=== PATIENT | female | born 1940 | race Caucasian/White ===

== ENCOUNTER 2016-05-20 14:11 | Observation (INO) | payer BC, MEDICARE ==
[2016-05-20] VITALS (7 sets, daily range): BP systolic 127–159; BP diastolic 60–75; PULSE 96–110; RESP 16–20; TEMP 98.2–98.5; O2SAT 95–96
[~2016-05-20] VITALS: Ht 160 cm; Wt 79.2 kg
[~2016-05-20 14:11] MED LIST: ALLO300 PO; ASPI81 PO; GEMF600 PO; LEVA750T9 PO; MAXZ PO; NIAC100T3 PO; PRAV40TA PO; PRIL10CA PO; TAB-TAB PO; TESS200C PO
[2016-05-20] MEDS ORDERED: PRAV40TA2 PO (14:26)
[2016-05-20] MEDS ORDERED: BENZ100 PO (14:26)
[2016-05-20] MEDS ORDERED: ASPI81CH CHEW (14:26)
[2016-05-20] MEDS ORDERED: ZITH250T PO (14:26)
[2016-05-20] MEDS ORDERED: GEMF600T PO (14:26)
[2016-05-20] MEDS ORDERED: METF500T PO (14:26)
[2016-05-20] MEDS ORDERED: LOSA100T2 PO (14:26)
[2016-05-20] MEDS ORDERED: NIAC100T2 PO (14:26)
[2016-05-20] MEDS ORDERED: PRIL20CA9 PO (14:26)
[2016-05-20] MEDS ORDERED: ALLO300T2 PO (14:26)
[2016-05-20] MEDS ORDERED: MULT-135 PO (14:26)
--- NOTE | 2016-05-20 14:50 | PD ---
HPI Chief Complaint: Cold / Flu Symptoms Time Seen by Provider: 14:40 Travel History International Travel<30 days: No Contact w/Intl Traveler<30days: No Traveled to known affect area: No History of Present Illness HPI 76 year-old female presents to the emergency room for evaluation of nonproductive cough, congestion, sore throat, and occasional headache for the past 3 days. She was recently on a cruise ship and reports symptoms started shortly after getting back. She states he granddaughter was on the ship too and has similar symptoms. Cough is severe and causes shortness of breathing during coughing spells. Denies any chronic lung, heart, or kidney problems or history of smoking. Denies any objective fever. Her felt her head 2 days ago and states she felt hot but otherwise she has no chills or sweats. She took Robitussin and Claritin without any improvement in symptoms. She went to an urgent care center yesterday and was diagnosed with upper respiratory infection and discharged with prescriptions for Tessalon Perles and azithromycin. Tessalon Perles are not helping. Patient was instructed not to start the azithromycin for a few days. States she started Z-Kale this morning because her cough was so severe. Only reports history of high cholesterol, diabetes, hypertension. PFSH Past Medical History Cardiovascular Problems: Yes (HTN) High Cholesterol: Yes Diabetes: Yes (TYPE 2) Patient Takes Glucophage: Yes Diminished Hearing: No Hypertension: Yes Tetanus Vaccination: < 5 Years Influenza Vaccination: Yes ?: Not Past Surgical History Cholecystectomy: Yes Hysterectomy: Yes Social History Alcohol Use: No Tobacco Use: No Substance Use: No Allergies-Medications (Allergen,Severity, Reaction): Coded Allergies: Sulfa (Verified Allergy, Intermediate, 05/20/16) Reported Meds & Prescriptions Reported Meds & Active Scripts Active Reported Zithromax (Azithromycin) 250 Mg Tab 250 Mg PO DIRECTED Take 2 tabs (500 mg) on day 1 then 1 tab daily x 4 days. Tessalon Perles (Benzonatate) 100 Mg Cap 100 Mg PO TID PRN Prilosec (Omeprazole) 20 Mg Cap 20 Mg PO DAILY Pravastatin 40 Mg Tab 40 Mg PO DAILY Allopurinol 300 Mg Tab 300 Mg PO DAILY Losartan-Hydrochlorothiazide 100-25 Mg Tab 1 Tab PO DAILY Metformin (Metformin HCl) 500 Mg Tab 250 Mg PO BIDPC With meals Gemfibrozil 600 Mg Tab 600 Mg PO BIDAC Take 30 minutes prior to breakfast and dinner. Aspirin 81 Mg Chew 81 Mg CHEW DAILY Niacin 100 Mg Tab 100 Mg PO DAILY Multi Vitamin (Multiple Vitamin) 1 Tab Tab 1 Tab PO DAILY Review of Systems Except as stated in HPI: all other systems reviewed are Neg Physical Exam Narrative GENERAL: Well-nourished, well-developed female in no acute distress. Afebrile. Ambulatory. SKIN: Warm and dry. HEAD: Normocephalic. EYES: No scleral icterus. No injection or drainage. ENT: Mucosa pink and moist. Mild to moderate erythema without exudates. No uvular edema. No uvular, palatal, or tonsillar deviation. Airway patent. EARS: Bilateral pinnae and external canals appear within normal limits. Bilateral tympanic membranes without erythema, dullness or perforation. NECK: Supple, trachea midline. No JVD or lymphadenopathy. CARDIOVASCULAR: Regular rate and rhythm without murmurs, gallops, or rubs. RESPIRATORY: Breath sounds equal bilaterally. No accessory muscle use. Bilateral expiratory Rales. Data Data Last Documented VS Vital Signs Date Time Temp Pulse Resp B/P Pulse Ox O2 Delivery O2 Flow Rate FiO2 05/20/16 15:30 96 20 127/63 95 Room Air 05/20/16 14:13 98.3 Orders Chest, Pa & Lat (05/20/16 ) Influenzae A/B Antigen (05/20/16 14:32) Complete Blood Count With Diff (05/20/16 14:36) Basic Metabolic Panel (Bmp) (05/20/16 14:36) Prothrombin Time / Inr (Pt) (05/20/16 14:36) Act Partial Throm Time (Ptt) (05/20/16 14:36) Albuterol-Ipratropium Neb (Duoneb Neb) (05/20/16 15:30) Sodium Chlor 0.9% 1000 Ml Inj (Ns 1000 M (05/20/16 16:00) Admit Order (Ed Use Only) (05/20/16 17:12) Labs Laboratory Tests Test 05/20/16 15:10 White Blood Count 14.5 TH/MM3 Red Blood Count 4.13 MIL/MM3 Hemoglobin 12.6 GM/DL Hematocrit 38.3 % Mean Corpuscular Volume 92.8 FL Mean Corpuscular Hemoglobin 30.6 PG Mean Corpuscular Hemoglobin 33.0 % Concent Red Cell Distribution Width 13.0 % Platelet Count 273 TH/MM3 Mean Platelet Volume 8.1 FL Neutrophils (%) (Auto) 71.4 % Lymphocytes (%) (Auto) 13.7 % Monocytes (%) (Auto) 11.3 % Eosinophils (%) (Auto) 2.8 % Basophils (%) (Auto) 0.8 % Neutrophils # (Auto) 10.4 TH/MM3 Lymphocytes # (Auto) 2.0 TH/MM3 Monocytes # (Auto) 1.6 TH/MM3 Eosinophils # (Auto) 0.4 TH/MM3 Basophils # (Auto) 0.1 TH/MM3 CBC Comment DIFF FINAL Differential Comment Prothrombin Time 11.5 SEC Prothromb Time International 1.0 RATIO Ratio Activated Partial 30.6 SEC Thromboplast Time Sodium Level 136 MEQ/L Potassium Level 4.1 MEQ/L Chloride Level 98 MEQ/L Carbon Dioxide Level 25.8 MEQ/L Anion Gap 12 MEQ/L Blood Urea Nitrogen 36 MG/DL Creatinine 1.80 MG/DL Estimat Glomerular Filtration 27 ML/MIN Rate Random Glucose 109 MG/DL Calcium Level 9.8 MG/DL [facility] Medical Decision Making Medical Screen Exam Complete: Yes Emergency Medical Condition: Yes Medical Record Reviewed: Yes Differential Diagnosis Bronchitis versus URI versus pneumonia Narrative Course 76-year-old female presents to the emergency room for evaluation of nonproductive cough and cold symptoms for the past 3 days. Patient started Z- Kale from an urgent care center this morning. She is afebrile and well- appearing in the emergency room. She is slightly tachycardic with heart rate in the low 100s; upon recheck it is 96. Vital signs otherwise stable. Pulse ox 95% on room air. Coughing occasionally. Cough is nonproductive. Lung sounds reveal expiratory rales. Chest x-ray is negative. Rapid flu is negative. CBC shows very mild leukocytosis of 14.5. BMP shows evidence of dehydration with an elevated BUN of 36 and creatinine 1.8. Patient given 1 L of fluids. She is visiting from out of town and will not return home until June 02. Patient will be admitted for dehydration/acute kidney injury. Patient understands and agrees to plan. Physician Communication Physician Communication I spoke to Dr. Joseph who agrees to admit this patient to her service. Diagnosis Primary Impression: Acute kidney injury Additional Impressions: Dehydration Upper respiratory infection Qualified Code: J00 - Acute nasopharyngitis Admitting Information Admitting Physician Requests: Observation Condition: Stable Shoshana Galloway May 20, 2016 14:50 Shoshana Galloway May 20, 2016 14:50 PRN (COUGH) #100 ML Ref 0 Do not exceed 6 doses/24 hrs. Prov:Aaron Gonzalez MD 05/20/16 Disposition: 01 DISCHARGE HOME Condition: Stable Shoshana Galloway May 20, 2016 14:50 Shoshana Galloway May 20, 2016 14:50
--- NOTE | 2016-05-20 15:00 | RADHPO ---
EXAM DATE/TIME: 05/20/2016 14:37 [place] COMPARISON: No previous studies available for comparison. INDICATIONS : Shortness of breath, fever, and cough for three days. MEDICAL HISTORY : Diabetes mellitus type II. SURGICAL HISTORY : None. ENCOUNTER: Initial ACUITY: 3 days PAIN SCORE: 0/10 LOCATION: Bilateral chest FINDINGS: PA and lateral views of the chest demonstrate the lungs to be symmetrically aerated without evidence of mass, infiltrate or effusion. The cardiomediastinal contours are unremarkable. Osseous structure s are intact. CONCLUSION: No acute disease. Isaias Del Valle MD FACR on May 20, 2016 at 14:58 Board Certified Radiologist. This report was verified electronically.
[2016-05-20 15:20] LABS: AUTOMATED NEUTROPHIL # 10.4 TH/MM3 (1.8-7.7); BASOPHIL # 0.1 TH/MM3 (0-0.2); BASOPHIL % 0.8 % (0.0-2.0); EOSINOPHIL # 0.4 TH/MM3 (0-0.4); EOSINOPHIL % 2.8 % (0.0-4.0); HEMATOCRIT 38.3 % (35.0-46.0); HEMO FLAGS DIFF FINAL; LYMPH % 13.7 % (9.0-44.0); MEAN CELL VOLUME 92.8 FL (80.0-100.0); MEAN CORPUSCULAR HEMOGLOBIN 30.6 PG (27.0-34.0); MONO % 11.3 % (0.0-8.0); NEUT % 71.4 % (16.0-70.0); PLATELET COUNT 273 TH/MM3 (150-450); RED BLOOD COUNT 4.13 MIL/MM3 (4.00-5.30); WHITE BLOOD COUNT 14.5 TH/MM3 (4.0-11.0)
[2016-05-20 15:29] LABS: POTASSIUM 4.1 MEQ/L (3.5-5.1)
[2016-05-20] MEDS ORDERED: RESP: ALBUTEROL 2.5 MG/IPRATROPIUM 0.5 MG NEB (SCH) NEB ONE (15:30)
[2016-05-20 15:32] LABS: BICARBONATE 25.8 MEQ/L (21.0-32.0)
[2016-05-20] MEDS ORDERED: CHERSYP2 PO (15:33)
[2016-05-20 15:34] LABS: APTT (PATIENT) 30.6 SEC (24.3-30.1); PROTHROMBIN TIME - PATIENT 11.5 SEC (9.8-11.6)
[2016-05-20] MEDS ORDERED: SODIUM CHLOR 0.9% 1000 ML INJ 1,000 ML IV ONE (16:00)
[2016-05-20] MEDS ORDERED: GLUCAGON 1 MG/ML VIAL OTHER PRN (17:45)
[2016-05-20] MEDS ORDERED: DEXTROSE 50% IN WATER 50 ML VIAL(D50) IV PUSH PRN (17:45)
[2016-05-20] MEDS: SODIUM CHLOR 0.9% 1000 ML INJ 1,000 ML IV SCH (18:38)
--- NOTE | 2016-05-20 18:50 | HHI.HP ---
[facility] Service [facility] Primary Care Physician Non-Staff Admission Diagnosis dehydration Diagnoses: (1) Sepsis Diagnosis: Principal (2) Leukocytosis Diagnosis: Principal (3) Acute kidney injury Diagnosis: Principal (4) Upper respiratory infection Diagnosis: Principal (5) possible bronchitis Diagnosis: Principal Chief Complaint: cough Travel History International Travel<30 Days: Yes Contact w/Intl Traveler <30 Da: Yes Name of Country Traveled to: [facility] Traveled to Known Affected Are: No Sepsis Criteria SIRS Criteria (2 or more): Heart rate over 90, WBC > 92205, < 4000 or > 10% bands Sepsis Criteria (SIRS+source): Infect source susp/known Criteria Outcome: Meets sepsis criteria History of Present Illness 76-year-old female with history of diabetes, hypertension, hyperlipidemia, GERD, gout presents with complaint of cold and cough symptoms, admitted for BIMAL. Patient states symptoms started on Sunday. She states she has had a cough which occurs day and night. She states her coughing fit today lasted 5 minutes, and she will gag and become short of breath due to coughing. States the cough is dry but admits to yellow mucus from the nose. She additionally has had headaches and sore throat as well as subjective fevers. She denies any earache or chills. She states she went to an urgent care and was prescribed a Z-Kale. She states she started it today, taking 500 mg. She took Robitussin without relief. Patient states she has not been eating or drinking much recently because she has been feeling ill. She denies any chest pain aside from soreness from coughing, abdominal pain, nausea, vomiting, diarrhea, constipation. Denies any dysuria. Denies any neck, back pain, or rashes. Denies any leg swelling. Currently staying in a motel as she is from [place]. Review of Systems Constitutional: COMPLAINS OF: Fever, DENIES: Chills Eyes: DENIES: Blurred vision Ears, nose, mouth, throat: COMPLAINS OF: Throat pain, Running Nose Respiratory: COMPLAINS OF: Cough, Shortness of breath, DENIES: Wheezing, Sputum production Cardiovascular: DENIES: Chest pain Gastrointestinal: DENIES: Abdominal pain, Constipation, Diarrhea, Nausea, Vomiting Genitourinary: DENIES: Dysuria Musculoskeletal: DENIES: Back pain, Neck pain Integumentary: DENIES: Rash Neurologic: COMPLAINS OF: Headache, DENIES: Paresthesias Past Family Social History Past Medical History Hypertension Hyperlipidemia Type 2 diabetes GERD Gout Past Surgical History Cholecystectomy Hysterectomy Bilateral total hip arthroplasties, 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 Reported Medications Zithromax (Azithromycin) 250 Mg Tab 250 Mg PO DIRECTED Take 2 tabs (500 mg) on day 1 then 1 tab daily x 4 days. Tessalon Perles (Benzonatate) 100 Mg Cap 100 Mg PO TID PRN Prilosec (Omeprazole) 20 Mg Cap 20 Mg PO DAILY Pravastatin 40 Mg Tab 40 Mg PO DAILY Allopurinol 300 Mg Tab 300 Mg PO DAILY Losartan-Hydrochlorothiazide 100-25 Mg Tab 1 Tab PO DAILY Metformin (Metformin HCl) 500 Mg Tab 250 Mg PO BIDPC With meals Gemfibrozil 600 Mg Tab 600 Mg PO BIDAC Take 30 minutes prior to breakfast and dinner. Aspirin 81 Mg Chew 81 Mg CHEW DAILY Niacin 100 Mg Tab 100 Mg PO DAILY Multi Vitamin (Multiple Vitamin) 1 Tab Tab 1 Tab PO DAILY Allergies: Coded Allergies: Sulfa (Verified Allergy, Intermediate, 05/20/16) Family History Mother: Type 2 diabetic. Father: [place] in his 80s. Social History Denies alcohol use. Denies any history of cigarette smoking. Denies illicit drug use. Physical Exam Vital Signs Vital Signs Date Time Temp Pulse Resp B/P Pulse Ox O2 Delivery O2 Flow Rate FiO2 05/20/16 17:21 106 20 152/60 95 Room Air 05/20/16 15:30 96 20 127/63 95 Room Air 05/20/16 14:25 20 95 05/20/16 14:13 98.3 110 18 156/72 95 Physical Exam GENERAL: This is a well-nourished, well-developed patient, in no apparent distress. SKIN: No rashes, ecchymoses or lesions. Cool and dry. HEAD: Atraumatic. Normocephalic. EYES: No scleral icterus. No injection or drainage. ENT: Erythema over the arches of the pharynx. No pharyngeal exudates. Uvula midline. Airway patent. NECK: Trachea midline. No lymphadenopathy. CARDIOVASCULAR: Tachycardic rate and regular rhythm. RESPIRATORY: Coarse expiratory breath sounds over the right posterior lung daley. Cough on exam. No rales. GASTROINTESTINAL: Abdomen soft, non-tender, nondistended. MUSCULOSKELETAL: No lower extremity edema bilaterally. NEUROLOGICAL: Awake and alert. Motor grossly within normal limits. Five out of 5 muscle strength in bilateral arms and legs. Normal speech. Laboratory Laboratory Tests Test 05/20/16 15:10 White Blood Count 14.5 Red Blood Count 4.13 Hemoglobin 12.6 Hematocrit 38.3 Mean Corpuscular Volume 92.8 Mean Corpuscular Hemoglobin 30.6 Mean Corpuscular Hemoglobin 33.0 Concent Red Cell Distribution Width 13.0 Platelet Count 273 Mean Platelet Volume 8.1 Neutrophils (%) (Auto) 71.4 Lymphocytes (%) (Auto) 13.7 Monocytes (%) (Auto) 11.3 Eosinophils (%) (Auto) 2.8 Basophils (%) (Auto) 0.8 Neutrophils # (Auto) 10.4 Lymphocytes # (Auto) 2.0 Monocytes # (Auto) 1.6 Eosinophils # (Auto) 0.4 Basophils # (Auto) 0.1 CBC Comment DIFF FINAL Differential Comment Prothrombin Time 11.5 Prothromb Time International 1.0 Ratio Activated Partial 30.6 Thromboplast Time Sodium Level 136 Potassium Level 4.1 Chloride Level 98 Carbon Dioxide Level 25.8 Anion Gap 12 Blood Urea Nitrogen 36 Creatinine 1.80 Estimat Glomerular Filtration 27 Rate Random Glucose 109 Calcium Level 9.8 Date/Time Procedure Status Source Growth 05/20/16 15:00 Influenza Types A,B Antigen (MARGARITA) - Final Complete Nasal Aspirate NEGATIVE FOR FLU A AND B ANTIGEN.... Result Diagram: 05/20/16 1510 05/20/16 1510 Imaging Chest x-ray without mass, infiltrate, or effusion. Assessment and Plan Assessment and Plan 76-year-old female with: Sepsis: Heart rate 110. White blood cell count 14.5. Suspected source of infection is URI, possible bronchitis. -Lactic acid -Blood cultures x 2 -IVF -Monitor CBC -Likely viral. Neutrophils are not significantly elevated. Will hold off on starting any further antibiotics. Patient did take 500 mg of azithromycin today which may help with inflammation. URI, possible bronchitis: WBC 14.5. Patient clearly has an upper respiratory infection with sore throat, runny nose, and cough, but she does have coarse breath sounds on lung exam with significant cough and is likely developing a bronchitis although it has only been 4 days. Chest x-ray personally interpreted without acute disease. -Tessalon, Phenergan-codeine cough syrup prn -Guaifenesin 600 mg po bid -Sputum culture -Albuterol q4h prn wheezing BIMAL: BUN/Cr 36/1.8 likely from poor oral intake during illness. -IV NS @ 100 mL/hr -Hold oral diabetes medicines -Hold Losartan-HCTZ -Monitor BMP Diabetes: -Hold oral diabetes medicines -Bedside Accu-checks with medium dose SSI Chronic medical problems also include hypertension, hyperlipidemia, GERD, gout: Continue home medications unless otherwise indicated above. DVT prevention: TEDs/SCDs, heparin sq. Belkis Umana May 20, 2016 18:50
[2016-05-20] MEDS: RESP: ALBUTEROL 2.5 MG/3 ML NEB (PRN) NEB (20:06)
[2016-05-20] MEDS: guaiFENesin E.R. 600 MG TAB PO SCH (20:14)
[2016-05-20] MEDS: PRAVASTATIN SOD 40 MG TAB PO SCH (20:14)
[2016-05-20] MEDS: PROMETHAZINE/CODEINE 6.25 MG/10 MG/5 ML CUP PO PRN (20:15)
[2016-05-20] MEDS: SODIUM CHLORIDE 0.9% FLUSH 5 ML FLUSH FLUSH SCH (20:16)
[2016-05-20] MEDS: HEPARIN SODIUM - SQ 10,000 UNITS/ML VIAL SQ SCH (20:16)
[2016-05-20] MEDS: INSULIN ASPART SUPPLEMENTAL SCALE SQ SCH (20:17)
[2016-05-20] MEDS: BENZONATATE 100 MG CAP PO PRN (22:47)
[2016-05-21] VITALS (9 sets, daily range): BP systolic 116–145; BP diastolic 56–68; PULSE 82–114; RESP 16–20; TEMP 96.2–97.9; O2SAT 92–97
[2016-05-21] MEDS: PROMETHAZINE/CODEINE 6.25 MG/10 MG/5 ML CUP PO PRN (01:06)
[2016-05-21] MEDS: SODIUM CHLOR 0.9% 1000 ML INJ 1,000 ML IV SCH ×3 (03:42→22:14)
[2016-05-21] MEDS: BENZONATATE 100 MG CAP PO PRN (06:43)
[2016-05-21] MEDS: INSULIN ASPART SUPPLEMENTAL SCALE SQ SCH ×4 (06:43→21:37)
[2016-05-21 08:00] LABS: AUTOMATED NEUTROPHIL # 5.5 TH/MM3 (1.8-7.7); BASOPHIL # 0.1 TH/MM3 (0-0.2); BASOPHIL % 0.7 % (0.0-2.0); EOSINOPHIL # 0.4 TH/MM3 (0-0.4); EOSINOPHIL % 4.9 % (0.0-4.0); HEMO FLAGS DIFF FINAL; LYMPH % 22.2 % (9.0-44.0); MEAN CELL VOLUME 93.7 FL (80.0-100.0); MEAN CORPUSCULAR HEMOGLOBIN 32.5 PG (27.0-34.0); MEAN CORPUSCULAR HGB CONC 34.7 % (32.0-36.0); MONO % 10.6 % (0.0-8.0); NEUT % 61.6 % (16.0-70.0); PLATELET COUNT 248 TH/MM3 (150-450); RED BLOOD COUNT 3.42 MIL/MM3 (4.00-5.30); RED CELL DISTRIBUTION WIDTH 12.8 % (11.6-17.2); WHITE BLOOD COUNT 8.9 TH/MM3 (4.0-11.0)
[2016-05-21 08:04] LABS: POTASSIUM 3.7 MEQ/L (3.5-5.1)
[2016-05-21 08:08] LABS: BICARBONATE 26.4 MEQ/L (21.0-32.0)
[2016-05-21] MEDS: RESP: ALBUTEROL 2.5 MG/3 ML NEB (PRN) NEB ×3 (08:17→15:48)
[2016-05-21] MEDS ORDERED: PRAVASTATIN SOD 40 MG TAB PO SCH (09:00)
[2016-05-21] MEDS: SODIUM CHLORIDE 0.9% FLUSH 5 ML FLUSH FLUSH SCH ×2 (09:00→21:00)
[2016-05-21] MEDS: NIACIN 100 MG TAB PO SCH (09:02)
[2016-05-21] MEDS: MULTIVITAMIN TAB PO SCH (09:02)
[2016-05-21] MEDS: ALLOPURINOL 300 MG TAB PO SCH (09:02)
[2016-05-21] MEDS: guaiFENesin E.R. 600 MG TAB PO SCH ×2 (09:02→21:36)
[2016-05-21] MEDS: PANTOPRAZOLE SOD 20 MG DELAYED RELEASE TAB PO SCH (09:03)
[2016-05-21] MEDS: ASPIRIN 81 MG CHEW TAB CHEW SCH (09:03)
[2016-05-21] MEDS: HEPARIN SODIUM - SQ 10,000 UNITS/ML VIAL SQ SCH ×2 (09:04→21:37)
[2016-05-21] MEDS: AZITHROMYCIN 250 MG TAB PO SCH (11:26)
[2016-05-21] MEDS: predniSONE 20 MG TAB PO SCH (13:37)
--- NOTE | 2016-05-21 17:34 | HHI.PR ---
Subjective Remarks Patient evaluated this morning. Follow-up for BIMAL and URI, bronchitis. Patient states she had a night sweat. Admits to cough, but denies any shortness of breath. Denies any vomiting. Remains afebrile. Objective Vitals Vital Signs Date Time Temp Pulse Resp B/P Pulse Ox O2 Delivery O2 Flow Rate FiO2 05/21/16 16:18 114 05/21/16 12:00 97.9 82 18 116/59 94 05/21/16 08:18 92 21 05/21/16 08:00 97.7 82 18 138/68 93 05/21/16 05:03 97.9 84 16 127/67 92 05/21/16 01:19 96.6 86 16 121/68 92 05/20/16 20:49 98.2 105 16 142/75 96 05/20/16 20:06 96 21 05/20/16 20:00 96 05/20/16 18:48 98.5 102 20 159/69 95 05/20/16 18:48 98.5 102 20 159/69 95 I/O 05/20/16 05/20/16 05/20/16 05/21/16 05/21/16 05/21/16 07:00 15:00 23:00 07:00 15:00 23:00 Intake Total 1000 ml 1582 ml Balance 1000 ml 1582 ml Intake IV Total 1000 ml 1582 ml # Voids 1 Result Diagram: 05/21/1630 05/21/16 0730 Objective Remarks GENERAL: Well-nourished well-developed female in no apparent distress. SKIN: Warm and dry. HEAD: Atraumatic. Normocephalic. CARDIOVASCULAR: Regular rate and rhythm. RESPIRATORY: No accessory muscle use. End expiratory wheezing. No rales or rhonchi. GASTROINTESTINAL: Abdomen soft, non-tender, nondistended. NEUROLOGICAL: Awake and alert. Motor grossly within normal limits. Normal speech. PSYCHIATRIC: Appropriate mood and affect; insight and judgment normal. Urinary Catheter: No Vascular Central Line Catheter: No A/P Problem List: (1) Sepsis ICD Code: A41.9 Status: Acute (2) Leukocytosis ICD Code: D72.829 Status: Acute (3) Acute kidney injury ICD Code: N17.9 Status: Acute (4) Upper respiratory infection ICD Code: J06.9 Status: Acute (5) possible bronchitis Status: Acute Assessment and Plan 76-year-old female with: Sepsis: Heart rate 110. White blood cell count 14.5. Suspected source of infection is URI, possible bronchitis. Improved HR. -Lactic acid normal -Blood cultures x 2 NGTD -Negative influenza -IVF -Monitor CBC URI, possible bronchitis: WBC 14.5-->8.9. Had coarse breath sounds on lung exam with significant cough yesterday and end expiratory wheezing today. Likely has developed bronchitis. Chest x-ray personally without acute disease. 94% on RA. -Sputum culture -Albuterol q4h prn wheezing -Tessalon, Phenergan-codeine cough syrup prn -Guaifenesin 600 mg po bid -Add low dose Prednisone 20 mg po daily -Likely viral. Normal neutrophil count. Patient took 500 mg of azithromycin yesterday; will continue 250 mg daily for 4 more days to assist with inflammation and cover patient as she is a diabetic. BIMAL: Improved. BUN/Cr 36/1.8-->31/1.3; likely from poor oral intake during illness. -Continue IV NS @ 100 mL/hr -Hold oral diabetes medicines -Hold Losartan-HCTZ -Monitor BMP Diabetes: am BGL 138. -Hold oral diabetes medicines -Bedside Accu-checks with medium dose SSI Chronic medical problems also include hypertension, hyperlipidemia, GERD, gout: Continue home medications unless otherwise indicated above. DVT prevention: TEDs/SCDs, heparin sq. Discharge Planning Patient will likely be discharged tomorrow if a BIMAL improves and patient develops no worsening on lung exam. Belkis Umana May 21, 2016 17:34
[2016-05-21] MEDS: PRAVASTATIN SOD 40 MG TAB PO SCH (21:37)
[2016-05-22] VITALS: BP 126/60; PULSE 82; RESP 18; TEMP 97.3; O2SAT 94
[2016-05-22 04:00] VITALS: BP 129/75; PULSE 73; RESP 18; TEMP 95.7; O2SAT 97
[2016-05-22] MEDS: INSULIN ASPART SUPPLEMENTAL SCALE SQ SCH ×2 (06:09→11:00)
[2016-05-22 08:00] VITALS: BP 132/82; PULSE 70; PULSE 79; RESP 18; TEMP 97.9; O2SAT 96
[2016-05-22] MEDS: guaiFENesin E.R. 600 MG TAB PO SCH (08:07)
[2016-05-22] MEDS: NIACIN 100 MG TAB PO SCH (08:07)
[2016-05-22] MEDS: PANTOPRAZOLE SOD 20 MG DELAYED RELEASE TAB PO SCH (08:07)
[2016-05-22] MEDS: ASPIRIN 81 MG CHEW TAB CHEW SCH (08:07)
[2016-05-22] MEDS: MULTIVITAMIN TAB PO SCH (08:07)
[2016-05-22] MEDS: ALLOPURINOL 300 MG TAB PO SCH (08:07)
[2016-05-22] MEDS: predniSONE 20 MG TAB PO SCH (08:07)
[2016-05-22] MEDS: AZITHROMYCIN 250 MG TAB PO SCH (08:07)
[2016-05-22] MEDS: HEPARIN SODIUM - SQ 10,000 UNITS/ML VIAL SQ SCH (08:08)
[2016-05-22] MEDS: SODIUM CHLORIDE 0.9% FLUSH 5 ML FLUSH FLUSH SCH (08:08)
[2016-05-22] MEDS: SODIUM CHLOR 0.9% 1000 ML INJ 1,000 ML IV SCH (08:09)
[2016-05-22 11:01] LABS: BICARBONATE 22.2 MEQ/L (21.0-32.0)
[2016-05-22] MEDS ORDERED: ALBU0.08 NEB (11:49)
[2016-05-22] MEDS ORDERED: ZITH250T PO (11:49)
[2016-05-22] MEDS ORDERED: PRED10PA PO (11:49)
--- NOTE | 2016-05-22 11:55 | HHI.DCPOC ---
Discharge Care Plan Diagnosis: (1) Bronchitis (2) Acute kidney injury Goals to Promote Your Health * To prevent worsening of your condition and complications * To maintain your health at the optimal level Directions to Meet Your Goals Take your medications as prescribed Follow your dietary instruction Follow activity as directed Keep your appointments as scheduled Take your immunizations and boosters as scheduled If your symptoms worsen call your PCP, if no PCP go to Urgent Care Center or Emergency Room Smoking is Dangerous to Your Health. Avoid second hand smoke Call the 24-hour hour crisis hotline for domestic abuse at Helene Joseph MD May 22, 2016 11:55
[2016-05-22] MEDS ORDERED: NEBULIZER1 MI1 (11:57)
--- NOTE | 2016-05-22 11:58 | HHI.DS ---
Discharge Summary Admission Date May 20, 2016 at 17:14 Discharge Date: May 22, 2016 Admitting Diagnosis dehydration (1) Sepsis ICD Code: A41.9 Diagnosis: Principal (2) Leukocytosis ICD Code: D72.829 Diagnosis: Principal (3) Acute kidney injury ICD Code: N17.9 Diagnosis: Principal (4) Upper respiratory infection ICD Code: J06.9 Diagnosis: Principal (5) possible bronchitis Diagnosis: Principal Procedures none Brief History - From Admission 76-year-old female with history of diabetes, hypertension, hyperlipidemia, GERD, gout presents with complaint of cold and cough symptoms, admitted for BIMAL. Patient states symptoms started on Sunday. She states she has had a cough which occurs day and night. She states her coughing fit today lasted 5 minutes, and she will gag and become short of breath due to coughing. States the cough is dry but admits to yellow mucus from the nose. She additionally has had headaches and sore throat as well as subjective fevers. She denies any earache or chills. She states she went to an urgent care and was prescribed a Z-Kale. She states she started it today, taking 500 mg. She took Robitussin without relief. Patient states she has not been eating or drinking much recently because she has been feeling ill. She denies any chest pain aside from soreness from coughing, abdominal pain, nausea, vomiting, diarrhea, constipation. Denies any dysuria. Denies any neck, back pain, or rashes. Denies any leg swelling. Currently staying in a motel as she is from [place]. CBC/BMP: 05/21/16 0730 05/22/16 1045 Significant Findings Laboratory Tests Test 05/20/16 05/21/16 05/22/16 15:10 07:30 10:45 White Blood Count 14.5 TH/MM3 (4.0-11.0) Neutrophils (%) (Auto) 71.4 % (16.0-70.0) Monocytes (%) (Auto) 11.3 % 10.6 % (0.0-8.0) (0.0-8.0) Neutrophils # (Auto) 10.4 TH/MM3 (1.8-7.7) Monocytes # (Auto) 1.6 TH/MM3 (0-0.9) Activated Partial 30.6 SEC Thromboplast Time (24.3-30.1) Blood Urea Nitrogen 36 MG/DL (7-18) 31 MG/DL (7-18) 30 MG/DL (7-18) Creatinine 1.80 MG/DL 1.30 MG/DL 1.20 MG/DL (0.50-1.00) (0.50-1.00) (0.50-1.00) Estimat Glomerular Filtration 27 ML/MIN (>89) 40 ML/MIN (>89) 44 ML/MIN (>89) Rate Random Glucose 109 MG/DL 146 MG/DL 137 MG/DL (74-106) (74-106) (74-106) Red Blood Count 3.42 MIL/MM3 (4.00-5.30) Hemoglobin 11.1 GM/DL (11.6-15.3) Hematocrit 32.0 % (35.0-46.0) Eosinophils (%) (Auto) 4.9 % (0.0-4.0) Chloride Level 109 MEQ/L (98-107) Imaging Last Impressions Chest X-Ray 05/20/16 0000 Signed Impressions: Service Date/Time: Friday, May 20, 2016 14:37 - CONCLUSION: No acute disease. Isaias Del Valle MD FACR PE at Discharge GENERAL: Well-nourished well-developed female in no apparent distress. SKIN: Warm and dry. HEAD: Atraumatic. Normocephalic. CARDIOVASCULAR: Regular rate and rhythm. RESPIRATORY: No accessory muscle use. End expiratory wheezing. No rales or rhonchi. GASTROINTESTINAL: Abdomen soft, non-tender, nondistended. NEUROLOGICAL: Awake and alert. Motor grossly within normal limits. Normal speech. PSYCHIATRIC: Appropriate mood and affect; insight and judgment normal. Pt update on day of discharge Better. Still with cough. Respiratory status is greatly improved. Discharge plans discussed with patient, spouse and nursing team at bedside. Hospital Course Patient seen and evaluated in follow-up for acute bronchitis with acute kidney injury. Overall improved. Patient did well with IV hydration, bronchodilators a short course of steroids and continuing her oral antibiotics. Pt Condition on Discharge: Good Discharge Disposition: Discharge Home Discharge Time: > 30 minutes Discharge Instructions DIET: Follow Instructions for: As Tolerated, No Restrictions Activities you can perform: Regular-No Restrictions Follow up Referrals: PCP Follow-up - 3 Weeks New Medications: Nebulizer (Nebulizer) 1 Mis Mis 1 EA .ROUTE DIRECTED Breathing Treatment #1 Ref 0 EA Prednisone (21) 10 mg tab Dose Pack (Prednisone (21) 10 mg tab Dose Pack) 10 Mg Pack 10 MG PO DIRECTED Inflammation #1 Ref 0 DSPK Albuterol Neb (Albuterol Neb) 2.5 Mg/3 Ml Neb 2.5 MG NEB Q4HR NEB PRN wheezing/SOB #100 NEBULE Azithromycin (Zithromax) 250 Mg Tab 250 MG PO DAILY brochitis #2 TAB Continued Medications: Allopurinol (Allopurinol) 300 Mg Tab 300 MG PO DAILY Gout #30 Ref 0 TAB Aspirin (Aspirin) 81 Mg Chew 81 MG CHEW DAILY Ref 0 TAB Azithromycin (Zithromax) 250 Mg Tab 250 MG PO DIRECTED Take 2 tabs (500 mg) on day 1 then 1 tab daily x 4 days. Infection #6 Ref 0 TAB Benzonatate (Tessalon Perles) 100 Mg Cap 100 MG PO TID PRN COUGH Ref 0 CAP Gemfibrozil (Gemfibrozil) 600 Mg Tab 600 MG PO BIDAC Take 30 minutes prior to breakfast and dinner. #60 Ref 0 TAB Losartan-Hydrochlorothiazide (Losartan-Hydrochlorothiazide) 100-25 Mg Tab 1 TAB PO DAILY Blood Pressure Management #30 Ref 0 TAB Metformin (Metformin) 500 Mg Tab 250 MG PO BIDPC With meals Blood Sugar Management #60 Ref 0 TAB Multiple Vitamin (Multi Vitamin) 1 Tab Tab 1 TAB PO DAILY TAB Niacin (Niacin) 100 Mg Tab 100 MG PO DAILY Nutritional Supplement #30 Ref 0 TAB Omeprazole (Prilosec) 20 Mg Cap 20 MG PO DAILY #30 Ref 0 CAP Pravastatin (Pravastatin) 40 Mg Tab 40 MG PO DAILY Cholesterol Management #30 Ref 0 TAB Helene Joseph MD May 22, 2016 11:58
== END 2016-05-22 13:09 | disposition home or self-care (01) ==
LOC: PHEFT 14:11 → PHEDA 17:14 → PH3B 18:23
PROVIDERS: ADMIT Hospitalist; ATTEND Hospitalist
DX: A41.9 Sepsis, unspecified organism (principal); E86.0 Dehydration; D72.829 Elevated white blood cell count, unspecified; N17.9 Acute kidney failure, unspecified; J20.9 Acute bronchitis, unspecified; J00 Acute nasopharyngitis [common cold]; I10 Essential (primary) hypertension; E78.5 Hyperlipidemia, unspecified; E11.9 Type 2 diabetes mellitus without complications; K21.9 Gastro-esophageal reflux disease without esophagitis; E78.00 Pure hypercholesterolemia, unspecified; M10.9 Gout, unspecified; K59.00 Constipation, unspecified; Z96.643 Presence of artificial hip joint, bilateral
CPT/HCPCS: 71020; 80048; 82948; 83605; 85025; 85610; 85730; 87040; 87804; 94640; 94664; 96360; 99285; G0378; J1644; J1815; J7030; J7512; J7613